=== PATIENT | female | born 1985 | race Caucasian/White ===

== ENCOUNTER 2024-05-17 16:50 | Emergency (ER) | payer BC | END 2024-05-17 17:39 | disposition home or self-care (01) | LOC: CSHERS 16:50 | DX: K03.81 Cracked tooth (principal); J06.9 Acute upper respiratory infection, unspecified; B97.89 Other viral agents as the cause of diseases classified elsewhere; F17.210 Nicotine dependence, cigarettes, uncomplicated; Z55.6 Problems related to health literacy | CPT/HCPCS: 99284 ==